=== PATIENT | female | born 1980 | race Caucasian/White ===

== ENCOUNTER 2016-12-29 01:59 | Inpatient (IN) | payer OTHER ==
[~2016-12-29] VITALS: Ht 172.7 cm; Wt 83.9 kg
[2016-12-29] MEDS ORDERED: NOVOLOG FLEX100 U/M1 (03:06)
[2016-12-29] MEDS ORDERED: GABAPENTIN100 M2 (03:06)
[2016-12-29] MEDS ORDERED: NORCO1 TA2 (03:06)
[2016-12-29] MEDS ORDERED: ASPIR 8181 MG (03:06)
[2016-12-29 03:29] LABS: PLATELET COUNT 230 x10^3mcL (130-400); RED CELL DISTRIBUTION WIDTH 12.8 % (11.5-14.5)
[2016-12-29 03:40] LABS: CALCIUM 8.7 mg/dL (8.5-10.1); CHLORIDE SERUM 101 mmol/L (98-107); CREATININE SERUM 0.7 mg/dL (0.6-1.0); GFR1 > 60 mL/min; GLUCOSE SERUM 302 mg/dL (74-106); POTASSIUM SERUM 4.1 mmol/L (3.5-5.1); SODIUM SERUM 136 mmol/L (136-145)
[2016-12-29 03:46] LABS: ALBUMIN 3.6 g/dL (3.4-5.0); ALKALINE PHOSPHATASE 83 U/L (46-116); ALT/SGPT 15 U/L (14-59); AST/SGOT 12 U/L (15-37); BILIRUBIN TOTAL 1.29 mg/dL (0.20-1.00); TOTAL PROTEIN, SERUM 7.3 g/dL (6.4-8.2)
[2016-12-29 04:20] LABS: MAGNESIUM 1.8 mg/dL (1.8-2.4); PHOSPHOROUS 3.2 mg/dL (2.5-4.9)
[2016-12-29 04:22] LABS: UA SPECIFIC GRAVITY 1.015 (1.005-1.035); microscopic required? YES; urine erythrocyte TRACE (NEGATIVE)
[2016-12-29 04:29] LABS: FREE T4 1.52 ng/dL (0.76-1.46); FREE THYROXINE INDEX 3.2 ug/dL (1.4-4.5); T4(THYROXINE) 9.1 ug/dL (4.7-13.3)
[2016-12-29 04:33] LABS: AMPHETAMINE QUAL UR NONE DETECTED (NEG <=1000)
[2016-12-29 04:44] LABS: T3 TOTAL 0.99 ng/mL
[2016-12-29 09:40] VITALS: BP 117/65
[2016-12-29 13:04] VITALS: BP 101/43
[2016-12-29 15:28] VITALS: Ht 172.7 cm; Wt 83.9 kg
[2016-12-29 17:26] VITALS: BP 107/66
[2016-12-29 21:30] VITALS: BP 115/57
[2016-12-30 06:07] VITALS: BP 126/74
[2016-12-30 06:12] LABS: BASOPHIL % 0.3 % (0-2); PLATELET COUNT 228 x10^3mcL (130-400); RED CELL DISTRIBUTION WIDTH 12.7 % (11.5-14.5)
[2016-12-30 06:36] LABS: CALCIUM 8.3 mg/dL (8.5-10.1); CARBON DIOXIDE 25.8 mmol/L (21-32); CHLORIDE SERUM 105 mmol/L (98-107); CREATININE SERUM 0.5 mg/dL (0.6-1.0); GFR1 > 60 mL/min; GLUCOSE SERUM 243 mg/dL (74-106); MAGNESIUM 1.9 mg/dL (1.8-2.4); PHOSPHOROUS 3.1 mg/dL (2.5-4.9); POTASSIUM SERUM 4.4 mmol/L (3.5-5.1); SODIUM SERUM 139 mmol/L (136-145)
[2016-12-30 09:47] VITALS: BP 123/71
== END 2016-12-30 10:21 | disposition left against medical advice (07) | DRG 518 ==
LOC: ED 01:59 → DU 03:33 → MU 03:33 → DU 05:04 → MU 08:05
PROVIDERS: Emergency Medicine; ADMIT Family Medicine
PROC: 0U9MXZZ Drainage of Vulva, External Approach (ICD-10-PCS; principal; 2016-12-29)
DX: N76.2 Acute vulvitis (principal); N17.0 Acute kidney failure with tubular necrosis; D68.69 Other thrombophilia; E11.42 Type 2 diabetes mellitus with diabetic polyneuropathy; E11.65 Type 2 diabetes mellitus with hyperglycemia; E83.51 Hypocalcemia; E80.6 Other disorders of bilirubin metabolism; M54.5 Low back pain; Z79.82 Long term (current) use of aspirin; Z79.4 Long term (current) use of insulin; F17.210 Nicotine dependence, cigarettes, uncomplicated; R31.9 Hematuria, unspecified; Z90.49 Acquired absence of other specified parts of digestive tract; Z88.6 Allergy status to analgesic agent; Z88.0 Allergy status to penicillin
CPT/HCPCS: 80307; 82962; 83880; 84439; 87491; 87591; 90715; J0696; J1170; J1815; J1956; J2405; J3490; J7030; Q0092

== ENCOUNTER 2017-07-20 13:05 | Inpatient (IN) | payer OTHER ==
[~2017-07-20] VITALS: Ht 177.8 cm; Wt 77.1 kg
[~2017-07-20 13:05] MED LIST: ASPIR 8181 MG; GABAPENTIN100 M2; NORCO1 TA2; NOVOLOG FLEX100 U/M1
[2017-07-20 14:24] LABS: BASOPHIL % 0.3 % (0-2); RED CELL DISTRIBUTION WIDTH 13.1 % (11.5-14.5)
[2017-07-20 14:31] LABS: PLATELET COUNT 562 x10^3mcL (130-400)
[2017-07-20 14:36] LABS: CALCIUM 9.2 mg/dL (8.5-10.1); CARBON DIOXIDE 29.5 mmol/L (21-32); CHLORIDE SERUM 101 mmol/L (98-107); CREATININE SERUM 0.8 mg/dL (0.6-1.0); GFR1 > 60 mL/min; GLUCOSE SERUM 119 mg/dL (74-106); POTASSIUM SERUM 4.2 mmol/L (3.5-5.1); SODIUM SERUM 137 mmol/L (136-145)
[2017-07-20 14:43] LABS: ALKALINE PHOSPHATASE 100 U/L (46-116); ALT/SGPT 23 U/L (14-59); AST/SGOT 18 U/L (15-37); TOTAL PROTEIN, SERUM 8.2 g/dL (6.4-8.2)
[2017-07-20 14:48] LABS: ALBUMIN 2.5 g/dL (3.4-5.0)
[2017-07-20] MEDS ORDERED: LANTUS SOLOS100 U/M1 (16:44)
[2017-07-20] MEDS ORDERED: GABAPENTIN600 M1 (16:45)
[2017-07-20] MEDS ORDERED: ELIQUIS5 MG (16:46)
[2017-07-20] MEDS ORDERED: GLUCOTROL10 MG (16:46)
[2017-07-20 19:03] VITALS: BP 133/87
[2017-07-20 19:17] LABS: T3 TOTAL 1.15 ng/mL
[2017-07-20 19:24] LABS: FREE T4 1.25 ng/dL (0.76-1.46); FREE THYROXINE INDEX 3.3 ug/dL (1.4-4.5); T4(THYROXINE) 8.8 ug/dL (4.7-13.3)
[2017-07-20 19:34] LABS: PHOSPHOROUS 4.1 mg/dL (2.5-4.9)
[2017-07-20 19:37] LABS: CHOLESTEROL/HDL RATIO 4.7
[2017-07-20 21:43] VITALS: BP 133/84
[2017-07-21 01:16] LABS: UA SPECIFIC GRAVITY >=1.030 (1.005-1.035); microscopic required? YES; urine erythrocyte TRACE (NEGATIVE)
[2017-07-21 01:32] LABS: AMPHETAMINE QUAL UR NONE DETECTED (NEG <=1000)
[2017-07-21 05:36] LABS: BASOPHIL % 0.3 % (0-2); RED CELL DISTRIBUTION WIDTH 13.4 % (11.5-14.5)
[2017-07-21 05:45] LABS: PLATELET COUNT 492 x10^3mcL (130-400)
[2017-07-21 05:48] LABS: CALCIUM 8.4 mg/dL (8.5-10.1); CARBON DIOXIDE 26.2 mmol/L (21-32); CHLORIDE SERUM 103 mmol/L (98-107); CREATININE SERUM 0.7 mg/dL (0.6-1.0); GFR1 > 60 mL/min; GLUCOSE SERUM 240 mg/dL (74-106); MAGNESIUM 2.1 mg/dL (1.8-2.4); SODIUM SERUM 135 mmol/L (136-145)
[2017-07-21 05:50] VITALS: BP 136/90
[2017-07-21 05:54] VITALS: BP 118/78
[2017-07-21 09:29] VITALS: BP 122/80
[2017-07-21 18:21] VITALS: BP 136/83
[2017-07-21 21:24] VITALS: BP 135/86
[2017-07-22 05:41] VITALS: BP 114/62
[2017-07-22 06:08] LABS: CALCIUM 8.4 mg/dL (8.5-10.1); CARBON DIOXIDE 28.1 mmol/L (21-32); CHLORIDE SERUM 102 mmol/L (98-107); CREATININE SERUM 0.6 mg/dL (0.6-1.0); GFR1 > 60 mL/min; GLUCOSE SERUM 172 mg/dL (74-106); MAGNESIUM 1.9 mg/dL (1.8-2.4); PHOSPHOROUS 3.8 mg/dL (2.5-4.9); POTASSIUM SERUM 4.3 mmol/L (3.5-5.1); SODIUM SERUM 137 mmol/L (136-145)
[2017-07-22 06:20] LABS: BASOPHIL % 0.5 % (0-2); RED CELL DISTRIBUTION WIDTH 13.4 % (11.5-14.5)
[2017-07-22 06:25] LABS: PLATELET COUNT 497 x10^3mcL (130-400)
[2017-07-22 10:02] VITALS: BP 121/76
[2017-07-22] MEDS ORDERED: CLINDAMYCIN300 M1 PO (12:06)
[2017-07-22] MEDS ORDERED: LAC PO (12:07)
[2017-07-22 13:17] VITALS: BP 121/76
== END 2017-07-22 13:52 | disposition home or self-care (01) | DRG 710 ==
LOC: ED 13:05 → MU 17:30 → DU 17:30 → MU 07-21 12:02
PROVIDERS: Emergency Medicine; Family Medicine; Family Medicine Sports Medicine; ADMIT Family Medicine
PROC: 0KBV0ZZ Excision of Right Foot Muscle, Open Approach (ICD-10-PCS; principal; 2017-07-21)
DX: A41.9 Sepsis, unspecified organism (principal); N17.0 Acute kidney failure with tubular necrosis; E43 Unspecified severe protein-calorie malnutrition; E11.40 Type 2 diabetes mellitus with diabetic neuropathy, unspecified; L03.115 Cellulitis of right lower limb; E87.1 Hypo-osmolality and hyponatremia; E11.51 Type 2 diabetes mellitus with diabetic peripheral angiopathy without gangrene; E11.621 Type 2 diabetes mellitus with foot ulcer; E11.65 Type 2 diabetes mellitus with hyperglycemia; E11.9 Type 2 diabetes mellitus without complications; D64.9 Anemia, unspecified; E11.628 Type 2 diabetes mellitus with other skin complications; R31.9 Hematuria, unspecified; J45.909 Unspecified asthma, uncomplicated; Z88.6 Allergy status to analgesic agent; Z88.0 Allergy status to penicillin; Z79.899 Other long term (current) drug therapy; Z86.718 Personal history of other venous thrombosis and embolism; Z79.01 Long term (current) use of anticoagulants; Z79.4 Long term (current) use of insulin; Z79.84 Long term (current) use of oral hypoglycemic drugs; Z90.49 Acquired absence of other specified parts of digestive tract; Z86.14 Personal history of Methicillin resistant Staphylococcus aureus infection; Z87.81 Personal history of (healed) traumatic fracture; Z79.82 Long term (current) use of aspirin
CPT/HCPCS: 83880; 84439; J1170; J1956; J2270; J3370; J3490; J7030; Q0092

== ENCOUNTER 2018-02-11 02:49 | Emergency (ER) | payer OTHER ==
[~2018-02-11 02:49] MED LIST changes: +CLINDAMYCIN300 M1 PO; +ELIQUIS5 MG; +GABAPENTIN600 M1; +GLUCOTROL10 MG; +LAC PO; +LANTUS SOLOS100 U/M1
[2018-02-12] MEDS ORDERED: LAC PO (08:23)
[2018-02-12] MEDS ORDERED: LEVAQUIN500 M1 PO (08:23)
== END 2018-02-11 09:26 | disposition other institution (70) ==
LOC: ED 02:49
DX: Z02.89 Encounter for other administrative examinations (principal)

== ENCOUNTER 2018-02-11 02:49 | Inpatient (IN) | payer OTHER ==
[~2018-02-11] VITALS: Ht 172.7 cm; Wt 67.6 kg
[2018-02-11 05:23] LABS: BASOPHIL % 0.1 % (0-2)
[2018-02-11 05:26] LABS: PLATELET COUNT 439 x10^3mcL (130-400); RED CELL DISTRIBUTION WIDTH 16.5 % (11.5-14.5)
[2018-02-11 05:33] LABS: CALCIUM 8.9 mg/dL (8.5-10.1); CARBON DIOXIDE 18.3 mmol/L (21-32); CHLORIDE SERUM 101 mmol/L (98-107); CREATININE SERUM 0.7 mg/dL (0.6-1.0); GFR1 > 60 mL/min; GLUCOSE SERUM 443 mg/dL (74-106); POTASSIUM SERUM 3.9 mmol/L (3.5-5.1); SODIUM SERUM 134 mmol/L (136-145)
[2018-02-11 05:40] LABS: OSMOLALITY SERUM 299 mOsm/kg (278-298)
[2018-02-11 05:47] LABS: ALKALINE PHOSPHATASE 153 U/L (46-116); ALT/SGPT 10 U/L (14-59); AST/SGOT 10 U/L (15-37); BILIRUBIN TOTAL 0.6 mg/dL (0.20-1.00); FREE T4 1.62 ng/dL (0.76-1.46); TOTAL PROTEIN, SERUM 6.9 g/dL (6.4-8.2)
[2018-02-11 05:48] LABS: ALBUMIN 2.9 g/dL (3.4-5.0)
[2018-02-11 10:02] LABS: CHOLESTEROL/HDL RATIO 2.8; MAGNESIUM 1.8 mg/dL (1.8-2.4); PHOSPHOROUS 4.3 mg/dL (2.5-4.9)
[2018-02-11 10:42] LABS: microscopic required? YES; urine erythrocyte 1+ (NEGATIVE)
[2018-02-11 10:47] LABS: AMPHETAMINE QUAL UR POSITIVE (NEG <=1000)
[2018-02-11 12:27] VITALS: BP 116/73
[2018-02-11 13:19] VITALS: Ht 172.7 cm; Wt 67.6 kg
[2018-02-11 13:56] VITALS: BP 122/76
[2018-02-11 17:22] VITALS: BP 110/70
[2018-02-11 19:40] VITALS: BP 117/76
[2018-02-12 05:58] VITALS: BP 114/70
[2018-02-12 06:48] LABS: BASOPHIL % 0.2 % (0-2); PLATELET COUNT 357 x10^3mcL (130-400)
[2018-02-12 06:57] LABS: CALCIUM 8.6 mg/dL (8.5-10.1); CARBON DIOXIDE 26.4 mmol/L (21-32); CHLORIDE SERUM 104 mmol/L (98-107); CREATININE SERUM 0.6 mg/dL (0.6-1.0); GFR1 > 60 mL/min; GLUCOSE SERUM 116 mg/dL (74-106); POTASSIUM SERUM 3.5 mmol/L (3.5-5.1); SODIUM SERUM 138 mmol/L (136-145)
[2018-02-12 07:30] LABS: RED CELL DISTRIBUTION WIDTH 16.4 % (11.5-14.5)
[2018-02-12] MEDS ORDERED: LAC PO (08:23)
[2018-02-12] MEDS ORDERED: LEVAQUIN500 M1 PO (08:23)
[2018-02-12 08:27] VITALS: BP 114/70
== END 2018-02-12 09:01 | disposition other institution (70) | DRG 720 ==
LOC: ED 02:49 → DU 09:00 → EDBEDREQSVC 09:00 → EDBEDREQ 09:12 → DU 09:38
PROVIDERS: Emergency Medicine; Family Medicine
DX: A41.9 Sepsis, unspecified organism (principal); E11.42 Type 2 diabetes mellitus with diabetic polyneuropathy; E44.0 Moderate protein-calorie malnutrition; E11.65 Type 2 diabetes mellitus with hyperglycemia; L03.031 Cellulitis of right toe; S92.411A Displaced fracture of proximal phalanx of right great toe, initial encounter for closed fracture; E87.1 Hypo-osmolality and hyponatremia; Z86.718 Personal history of other venous thrombosis and embolism; Z88.5 Allergy status to narcotic agent; Z88.0 Allergy status to penicillin; Z90.49 Acquired absence of other specified parts of digestive tract; Z98.891 History of uterine scar from previous surgery; Y08.89XA Assault by other specified means, initial encounter; Y93.9 Activity, unspecified; Y92.89 Other specified places as the place of occurrence of the external cause; Y99.8 Other external cause status; Z68.23 Body mass index [BMI] 23.0-23.9, adult
CPT/HCPCS: 83880; 84439; J1815; J1956; J3490; J7030; Q0092

== ENCOUNTER 2018-04-01 20:34 | Inpatient (IN) | payer OTHER ==
[~2018-04-01] VITALS: Ht 172.7 cm; Wt 62.5 kg
[~2018-04-01 20:34] MED LIST changes: +LEVAQUIN500 M1 PO
[2018-04-01 21:35] LABS: PLATELET COUNT 443 x10^3mcL (130-400); RED CELL DISTRIBUTION WIDTH 16.3 % (11.5-14.5)
[2018-04-01 21:40] LABS: BAND NEUTROPHIL 0 % (0-10); BASOPHIL 0 % (0-2); MONOCYTE 2 % (0-7); SEGMENTED NEUTROPHILS 95 % (37-75); rbc morphology (normal/abnorm) NORMAL (NORMAL)
[2018-04-01 21:41] LABS: PLATELET MORPHOLOGY PLATELETS NORMAL
[2018-04-01 21:54] LABS: ALKALINE PHOSPHATASE 186 U/L (46-116); ALT/SGPT 9 U/L (14-59); AST/SGOT 10 U/L (15-37); BILIRUBIN TOTAL 0.75 mg/dL (0.20-1.00); CALCIUM 10.3 mg/dL (8.5-10.1); CHLORIDE SERUM 96 mmol/L (98-107); CREATININE SERUM 1.3 mg/dL (0.6-1.0); GFR1 48 mL/min; GLUCOSE SERUM 394 mg/dL (74-106); POTASSIUM SERUM 4.9 mmol/L (3.5-5.1); SODIUM SERUM 131 mmol/L (136-145)
[2018-04-01 21:55] LABS: ALBUMIN 2.7 g/dL (3.4-5.0)
[2018-04-01 21:57] LABS: CARBON DIOXIDE 9.7 mmol/L (21-32)
[2018-04-01 22:02] LABS: CK-MB < 0.5 ng/mL (0-3.6); CREATINE KINASE 11 U/L (26-192)
[2018-04-01] MEDS ORDERED: GLIPIZIDE10 M3 PO (22:59)
[2018-04-01] MEDS ORDERED: ELIQUIS5 MG PO (23:01)
[2018-04-02] VITALS (7 sets, daily range): BP systolic 125–149; BP diastolic 66–93
[2018-04-02 03:07] LABS: MAGNESIUM 2.1 mg/dL (1.8-2.4); PHOSPHOROUS 3.6 mg/dL (2.5-4.9)
[2018-04-02 03:11] LABS: CHOLESTEROL/HDL RATIO 3.1
[2018-04-02 03:19] LABS: FREE T4 1.02 ng/dL (0.76-1.46)
[2018-04-02 03:22] LABS: FREE THYROXINE INDEX 1.5 ug/dL (1.4-4.5); T4(THYROXINE) 4.5 ug/dL (4.7-13.3)
[2018-04-02 04:24] LABS: T3 TOTAL 0.33 ng/mL
[2018-04-02 04:42] LABS: CALCIUM 8.4 mg/dL (8.5-10.1); CARBON DIOXIDE 14.4 mmol/L (21-32); CHLORIDE SERUM 105 mmol/L (98-107); CREATININE SERUM 0.9 mg/dL (0.6-1.0); GFR1 > 60 mL/min; GLUCOSE SERUM 201 mg/dL (74-106); MAGNESIUM 1.5 mg/dL (1.8-2.4); PHOSPHOROUS 1.6 mg/dL (2.5-4.9); POTASSIUM SERUM 3.6 mmol/L (3.5-5.1); SODIUM SERUM 136 mmol/L (136-145)
[2018-04-02 09:09] LABS: CALCIUM 7.7 mg/dL (8.5-10.1); CARBON DIOXIDE 16.3 mmol/L (21-32); CHLORIDE SERUM 105 mmol/L (98-107); CREATININE SERUM 0.8 mg/dL (0.6-1.0); GFR1 > 60 mL/min; GLUCOSE SERUM 222 mg/dL (74-106); MAGNESIUM 1.6 mg/dL (1.8-2.4); PHOSPHOROUS 1.1 mg/dL (2.5-4.9); POTASSIUM SERUM 3.6 mmol/L (3.5-5.1); SODIUM SERUM 137 mmol/L (136-145)
[2018-04-02 09:43] LABS: PLATELET COUNT 423 x10^3mcL (130-400); RED CELL DISTRIBUTION WIDTH 16.1 % (11.5-14.5)
[2018-04-02 11:37] LABS: BAND NEUTROPHIL 14 % (0-10); BASOPHIL 0 % (0-2); MONOCYTE 4 % (0-7); SEGMENTED NEUTROPHILS 78 % (37-75)
[2018-04-02 11:40] LABS: rbc morphology (normal/abnorm) ABNORMAL (NORMAL)
[2018-04-02 11:41] LABS: tear drop cell (dacryocyte) 1+
[2018-04-02 12:55] LABS: CARBON DIOXIDE 19.1 mmol/L (21-32); CHLORIDE SERUM 102 mmol/L (98-107); CREATININE SERUM 0.9 mg/dL (0.6-1.0); GFR1 > 60 mL/min; GLUCOSE SERUM 240 mg/dL (74-106); PHOSPHOROUS 1.3 mg/dL (2.5-4.9); POTASSIUM SERUM 3.3 mmol/L (3.5-5.1); SODIUM SERUM 134 mmol/L (136-145)
[2018-04-02 16:41] LABS: CALCIUM 8.8 mg/dL (8.5-10.1); CARBON DIOXIDE 21.9 mmol/L (21-32); CHLORIDE SERUM 103 mmol/L (98-107); CREATININE SERUM 0.7 mg/dL (0.6-1.0); GFR1 > 60 mL/min; GLUCOSE SERUM 201 mg/dL (74-106); PHOSPHOROUS 1.4 mg/dL (2.5-4.9); POTASSIUM SERUM 3.1 mmol/L (3.5-5.1); SODIUM SERUM 135 mmol/L (136-145)
[2018-04-02 20:59] LABS: CALCIUM 7.6 mg/dL (8.5-10.1); CARBON DIOXIDE 21.8 mmol/L (21-32); CHLORIDE SERUM 103 mmol/L (98-107); CREATININE SERUM 0.5 mg/dL (0.6-1.0); GFR1 > 60 mL/min; GLUCOSE SERUM 191 mg/dL (74-106); MAGNESIUM 1.7 mg/dL (1.8-2.4); PHOSPHOROUS 1.5 mg/dL (2.5-4.9); POTASSIUM SERUM 3.1 mmol/L (3.5-5.1); SODIUM SERUM 134 mmol/L (136-145)
[2018-04-03 03:42] VITALS: BP 137/87
[2018-04-03 05:23] LABS: BASOPHIL % 0.3 % (0-2); PLATELET COUNT 385 x10^3mcL (130-400)
[2018-04-03 05:25] LABS: RED CELL DISTRIBUTION WIDTH 15.7 % (11.5-14.5)
[2018-04-03 05:38] LABS: CALCIUM 8.1 mg/dL (8.5-10.1); CARBON DIOXIDE 22.2 mmol/L (21-32); CHLORIDE SERUM 100 mmol/L (98-107); CREATININE SERUM 0.6 mg/dL (0.6-1.0); GFR1 > 60 mL/min; GLUCOSE SERUM 247 mg/dL (74-106); MAGNESIUM 1.6 mg/dL (1.8-2.4); PHOSPHOROUS 1.3 mg/dL (2.5-4.9); POTASSIUM SERUM 3.1 mmol/L (3.5-5.1); SODIUM SERUM 132 mmol/L (136-145)
[2018-04-03 07:18] VITALS: BP 138/88
[2018-04-03 08:00] VITALS: Ht 172.7 cm; Wt 62.5 kg
[2018-04-03 08:07] LABS: CARBON DIOXIDE 22.1 mmol/L (21-32); CHLORIDE SERUM 100 mmol/L (98-107); CREATININE SERUM 0.6 mg/dL (0.6-1.0); GFR1 > 60 mL/min; GLUCOSE SERUM 251 mg/dL (74-106); MAGNESIUM 1.6 mg/dL (1.8-2.4); PHOSPHOROUS 1.6 mg/dL (2.5-4.9); POTASSIUM SERUM 3.2 mmol/L (3.5-5.1); SODIUM SERUM 133 mmol/L (136-145)
[2018-04-03 11:46] VITALS: BP 143/105
[2018-04-03 16:38] VITALS: BP 125/76
[2018-04-03 21:09] VITALS: BP 128/80
[2018-04-04 05:59] VITALS: BP 124/71
[2018-04-04 06:31] LABS: BASOPHIL % 0.2 % (0-2); PLATELET COUNT 348 x10^3mcL (130-400)
[2018-04-04 06:34] LABS: CALCIUM 8.1 mg/dL (8.5-10.1); CARBON DIOXIDE 27.2 mmol/L (21-32); CHLORIDE SERUM 104 mmol/L (98-107); CREATININE SERUM 0.5 mg/dL (0.6-1.0); GFR1 > 60 mL/min; GLUCOSE SERUM 107 mg/dL (74-106); PHOSPHOROUS 1.9 mg/dL (2.5-4.9); SODIUM SERUM 139 mmol/L (136-145)
[2018-04-04 06:45] LABS: RED CELL DISTRIBUTION WIDTH 16.2 % (11.5-14.5)
[2018-04-04 06:47] LABS: POTASSIUM SERUM 2.9 mmol/L (3.5-5.1)
[2018-04-04 09:05] VITALS: BP 111/73
[2018-04-04 15:24] VITALS: BP 100/59
[2018-04-04 16:24] VITALS: BP 114/67
[2018-04-04 19:01] LABS: CALCIUM 8.1 mg/dL (8.5-10.1); CARBON DIOXIDE 28.4 mmol/L (21-32); CHLORIDE SERUM 103 mmol/L (98-107); CREATININE SERUM 0.6 mg/dL (0.6-1.0); GFR1 > 60 mL/min; GLUCOSE SERUM 322 mg/dL (74-106); POTASSIUM SERUM 3.9 mmol/L (3.5-5.1); SODIUM SERUM 135 mmol/L (136-145)
[2018-04-04 21:10] VITALS: BP 96/68
[2018-04-05 05:46] VITALS: BP 126/63
[2018-04-05 06:20] LABS: MAGNESIUM 1.6 mg/dL (1.8-2.4); PHOSPHOROUS 2.2 mg/dL (2.5-4.9)
[2018-04-05 06:59] LABS: BASOPHIL % 0.2 % (0-2); PLATELET COUNT 336 x10^3mcL (130-400)
[2018-04-05 07:01] LABS: RED CELL DISTRIBUTION WIDTH 16.4 % (11.5-14.5)
[2018-04-05 09:52] VITALS: BP 107/59
[2018-04-05 13:35] VITALS: BP 112/76
[2018-04-05 17:32] VITALS: BP 109/74
[2018-04-05 21:37] VITALS: BP 119/81
[2018-04-06 05:35] LABS: BASOPHIL % 0.4 % (0-2)
[2018-04-06 05:47] LABS: CALCIUM 8.4 mg/dL (8.5-10.1); CARBON DIOXIDE 31.9 mmol/L (21-32); CHLORIDE SERUM 104 mmol/L (98-107); CREATININE SERUM 0.6 mg/dL (0.6-1.0); GFR1 > 60 mL/min; GLUCOSE SERUM 150 mg/dL (74-106); SODIUM SERUM 141 mmol/L (136-145)
[2018-04-06 05:48] VITALS: BP 125/73
[2018-04-06 05:49] LABS: PLATELET COUNT 409 x10^3mcL (130-400); RED CELL DISTRIBUTION WIDTH 16.6 % (11.5-14.5)
[2018-04-06 09:35] VITALS: BP 113/55
[2018-04-06 12:54] VITALS: BP 113/55
[2018-04-06] MEDS ORDERED: LEVOFLOXACIN500 M1 PO (14:59)
== END 2018-04-06 15:45 | disposition home or self-care (01) | DRG 710 ==
LOC: ED 20:34 → IC 22:17 → DU 22:17 → IC 23:23 → DU 04-03 15:17
PROVIDERS: Emergency Medicine; Internal Medicine
PROC: 02HV33Z Insertion of Infusion Device into Superior Vena Cava, Percutaneous Approach (ICD-10-PCS; principal; 2018-04-02)
PROC: B548ZZA Ultrasonography of Superior Vena Cava, Guidance (ICD-10-PCS; 2018-04-02)
PROC: 0Y6M0Z9 Detachment at Right Foot, Partial 1st Ray, Open Approach (ICD-10-PCS; 2018-04-04)
PROC: 0HDRXZZ Extraction of Toe Nail, External Approach (ICD-10-PCS; 2018-04-04)
DX: A41.9 Sepsis, unspecified organism (principal); E43 Unspecified severe protein-calorie malnutrition; E11.10 Type 2 diabetes mellitus with ketoacidosis without coma; I96 Gangrene, not elsewhere classified; E11.42 Type 2 diabetes mellitus with diabetic polyneuropathy; E11.65 Type 2 diabetes mellitus with hyperglycemia; I47.1 Supraventricular tachycardia; E11.52 Type 2 diabetes mellitus with diabetic peripheral angiopathy with gangrene; E83.39 Other disorders of phosphorus metabolism; M86.9 Osteomyelitis, unspecified; E11.69 Type 2 diabetes mellitus with other specified complication; Z68.1 Body mass index [BMI] 19.9 or less, adult; F17.210 Nicotine dependence, cigarettes, uncomplicated; E87.6 Hypokalemia; L60.0 Ingrowing nail; Z88.5 Allergy status to narcotic agent; Z88.0 Allergy status to penicillin; J45.909 Unspecified asthma, uncomplicated; S92.911A Unspecified fracture of right toe(s), initial encounter for closed fracture; X58.XXXA Exposure to other specified factors, initial encounter; Y93.89 Activity, other specified; Y92.89 Other specified places as the place of occurrence of the external cause; Y99.8 Other external cause status; Z90.49 Acquired absence of other specified parts of digestive tract; L03.115 Cellulitis of right lower limb; B95.1 Streptococcus, group B, as the cause of diseases classified elsewhere
CPT/HCPCS: 36556; 36600; 83880; 84439; 94150; G0480; J1642; J1815; J1956; J2060; J2405; J3010; J3370; J3475; J3480; J3490; J7030; J7040; J7050; Q0092

== ENCOUNTER 2018-05-01 21:07 | Inpatient (IN) | payer OTHER ==
[~2018-05-01] VITALS: Ht 172.7 cm; Wt 70.9 kg
[~2018-05-01 21:07] MED LIST changes: +ELIQUIS5 MG PO; +GLIPIZIDE10 M3 PO; +LEVOFLOXACIN500 M1 PO
[2018-05-01 22:06] VITALS: Ht 172.7 cm; Wt 70.9 kg
[2018-05-02 02:13] LABS: BASOPHIL % 0.4 % (0-2); PLATELET COUNT 309 x10^3mcL (130-400)
[2018-05-02 02:21] LABS: CALCIUM 8.6 mg/dL (8.5-10.1); CARBON DIOXIDE 28.4 mmol/L (21-32); CHLORIDE SERUM 105 mmol/L (98-107); CREATININE SERUM 0.7 mg/dL (0.6-1.0); GFR1 > 60 mL/min; GLUCOSE SERUM 155 mg/dL (74-106); POTASSIUM SERUM 3.8 mmol/L (3.5-5.1); SODIUM SERUM 142 mmol/L (136-145)
[2018-05-02 02:26] LABS: ALBUMIN 2.8 g/dL (3.4-5.0); ALKALINE PHOSPHATASE 121 U/L (46-116); ALT/SGPT 11 U/L (14-59); AST/SGOT 8 U/L (15-37); BILIRUBIN TOTAL 0.43 mg/dL (0.20-1.00); TOTAL PROTEIN, SERUM 7.1 g/dL (6.4-8.2)
[2018-05-02 04:27] VITALS: BP 125/79
[2018-05-02 04:32] LABS: FREE T4 1.17 ng/dL (0.76-1.46)
[2018-05-02 04:33] LABS: T3 TOTAL 0.86 ng/mL
[2018-05-02 04:36] LABS: CHOLESTEROL/HDL RATIO 2.6; MAGNESIUM 1.9 mg/dL (1.8-2.4); PHOSPHOROUS 3.9 mg/dL (2.5-4.9)
[2018-05-02 09:40] VITALS: BP 112/67
[2018-05-02 09:48] VITALS: BP 113/68
[2018-05-02 09:58] LABS: UA SPECIFIC GRAVITY >=1.030 (1.005-1.035); microscopic required? YES; urine erythrocyte 3+ (NEGATIVE)
[2018-05-02 13:36] VITALS: BP 112/74
[2018-05-02 17:25] VITALS: BP 110/72
[2018-05-02 20:47] VITALS: BP 121/73
[2018-05-03 06:00] VITALS: BP 113/70
[2018-05-03 07:37] LABS: BASOPHIL % 0.4 % (0-2); PLATELET COUNT 285 x10^3mcL (130-400)
[2018-05-03 07:40] LABS: RED CELL DISTRIBUTION WIDTH 16.4 % (11.5-14.5)
[2018-05-03 07:43] LABS: CALCIUM 7.9 mg/dL (8.5-10.1); CARBON DIOXIDE 26.6 mmol/L (21-32); CHLORIDE SERUM 104 mmol/L (98-107); CREATININE SERUM 0.7 mg/dL (0.6-1.0); GFR1 > 60 mL/min; GLUCOSE SERUM 342 mg/dL (74-106); MAGNESIUM 1.7 mg/dL (1.8-2.4); POTASSIUM SERUM 4.3 mmol/L (3.5-5.1); SODIUM SERUM 135 mmol/L (136-145)
[2018-05-03 09:12] VITALS: BP 121/80
[2018-05-03 11:15] VITALS: BP 121/80
[2018-05-03] MEDS ORDERED: BACTRIM DS1 TAB PO (15:02)
== END 2018-05-03 15:52 | disposition home or self-care (01) | DRG 314 ==
LOC: ED 21:07 → DU 05-02 01:47
PROVIDERS: Emergency Medicine; Family Medicine; Podiatrist Foot & Ankle Surgery
PROC: 0Y6S0Z3 Detachment at Left 2nd Toe, Low, Open Approach (ICD-10-PCS; principal; 2018-05-02 07:30)
DX: E11.69 Type 2 diabetes mellitus with other specified complication (principal); N17.0 Acute kidney failure with tubular necrosis; E43 Unspecified severe protein-calorie malnutrition; M86.171 Other acute osteomyelitis, right ankle and foot; E11.65 Type 2 diabetes mellitus with hyperglycemia; I47.1 Supraventricular tachycardia; L03.115 Cellulitis of right lower limb; E11.42 Type 2 diabetes mellitus with diabetic polyneuropathy; E11.621 Type 2 diabetes mellitus with foot ulcer; Z79.82 Long term (current) use of aspirin; Z79.4 Long term (current) use of insulin; Z89.421 Acquired absence of other right toe(s); Z68.21 Body mass index [BMI] 21.0-21.9, adult; Z79.84 Long term (current) use of oral hypoglycemic drugs; F17.210 Nicotine dependence, cigarettes, uncomplicated; Z88.5 Allergy status to narcotic agent; Z88.0 Allergy status to penicillin; J45.909 Unspecified asthma, uncomplicated; I10 Essential (primary) hypertension; L97.519 Non-pressure chronic ulcer of other part of right foot with unspecified severity
CPT/HCPCS: 83880; 84439; J1580; J2250; J2405; J3010; J3370; J3490; J7030; J7050; Q0092

== ENCOUNTER 2019-03-20 08:44 | Emergency (ER) | payer OTHER ==
[~2019-03-20] VITALS: Ht 172.7 cm; Wt 74.4 kg
[~2019-03-20 08:44] MED LIST changes: +BACTRIM DS1 TAB PO
[2019-03-20 08:50] VITALS: BP 155/98; Ht 172.7 cm; Wt 74.4 kg
== END 2019-03-20 11:47 | disposition home or self-care (01) ==
LOC: ED 08:44
DX: M79.605 Pain in left leg (principal); M79.89 Other specified soft tissue disorders; M25.572 Pain in left ankle and joints of left foot; R06.02 Shortness of breath; E11.9 Type 2 diabetes mellitus without complications; J45.909 Unspecified asthma, uncomplicated; Z98.890 Other specified postprocedural states; Z89.421 Acquired absence of other right toe(s); Z90.49 Acquired absence of other specified parts of digestive tract; Z88.0 Allergy status to penicillin; Z88.1 Allergy status to other antibiotic agents; Z88.5 Allergy status to narcotic agent
CPT/HCPCS: J3010; Q0162

== ENCOUNTER 2019-06-15 16:02 | Emergency (ER) | payer BC ==
[~2019-06-15] VITALS: Ht 165.1 cm; Wt 68.0 kg
[2019-06-15 16:08] VITALS: Ht 165.1 cm; Wt 68.0 kg
[2019-06-15 17:57] LABS: PLATELET COUNT 280 x10^3mcL (130-400)
[2019-06-15 18:08] LABS: BILIRUBIN TOTAL 0.7 mg/dL (0.20-1.00); CALCIUM 7.7 mg/dL (8.5-10.1); CARBON DIOXIDE 25.4 mmol/L (21-32); CREATININE SERUM 1.1 mg/dL (0.6-1.0); POTASSIUM SERUM 3.9 mmol/L (3.5-5.1); TOTAL PROTEIN, SERUM 6.5 g/dL (6.4-8.2)
[2019-06-15 18:13] LABS: ALBUMIN 2.1 g/dL (3.4-5.0)
[2019-06-15 18:44] LABS: BASOPHIL % 0 % (0-2); RED CELL DISTRIBUTION WIDTH 19.7 % (11.5-14.5)
[2019-06-15 23:25] VITALS: BP 114/63
== END 2019-06-15 23:25 | disposition home or self-care (01) ==
LOC: ED 16:02
PROVIDERS: Emergency Medicine
DX: E11.65 Type 2 diabetes mellitus with hyperglycemia (principal); E11.621 Type 2 diabetes mellitus with foot ulcer; F17.210 Nicotine dependence, cigarettes, uncomplicated; J45.909 Unspecified asthma, uncomplicated; Z89.431 Acquired absence of right foot; Z71.6 Tobacco abuse counseling; Z59.0 Homelessness; Z88.1 Allergy status to other antibiotic agents; Z88.0 Allergy status to penicillin
CPT/HCPCS: 82962; 99406; J1815; J1885; J2405; J7030; Q0092

== ENCOUNTER 2019-07-25 00:25 | Emergency (ER) | payer MEDICAID ==
[~2019-07-25] VITALS: Ht 172.7 cm; Wt 72.6 kg
[2019-07-25 00:35] VITALS: Ht 172.7 cm; Wt 72.6 kg
[2019-07-25 04:26] VITALS: BP 119/80
== END 2019-07-25 04:15 | disposition home or self-care (01) ==
LOC: ED 00:25
DX: S90.31XA Contusion of right foot, initial encounter (principal); Z88.0 Allergy status to penicillin; X58.XXXA Exposure to other specified factors, initial encounter; Y93.89 Activity, other specified; Y92.89 Other specified places as the place of occurrence of the external cause; Y99.8 Other external cause status

== ENCOUNTER 2020-04-17 14:26 | Emergency (ER) | payer OTHER, MEDICAID ==
[~2020-04-17] VITALS: Ht 162.6 cm; Wt 73.0 kg
[~2020-04-17 14:26] MED LIST changes: +BG FS; +BLOOD GLUCOSE1 EAC3 MC; +CLEOCIN HCL150 MG PO; +EASY COMFORT ALCO70% TOP; +KADIAN10 M1 IVP; +LANTI SQ; +MOT800 PO; +NEU300 PO; +NOR10T; +TEST STRIPS1 EACH MC; +ZESTRIL20 MG PO
[2020-04-17 14:36] VITALS: Ht 162.6 cm; Wt 73.0 kg
[2020-04-17 15:47] VITALS: BP 124/78
== END 2020-04-17 15:47 | disposition home or self-care (01) ==
LOC: ED 14:26
DX: L03.213 Periorbital cellulitis (principal); J45.909 Unspecified asthma, uncomplicated; I10 Essential (primary) hypertension; E11.9 Type 2 diabetes mellitus without complications; Z98.890 Other specified postprocedural states; Z89.431 Acquired absence of right foot; Z90.49 Acquired absence of other specified parts of digestive tract; Z88.0 Allergy status to penicillin; Z88.1 Allergy status to other antibiotic agents